=== PATIENT | male | born 1970 | race Hispanic/Latino ===

== ENCOUNTER 2017-10-07 15:42 | Emergency (ER) | payer BC ==
[2017-10-07 15:50] VITALS: TEMP 98.7
[2017-10-07] MEDS ORDERED: Lidocaine 2% w Epi 1:100,000 Inj IJ ONE ×2 (16:10→16:18)
--- NOTE | 2017-10-07 16:13 | ED PDOC ---
HPI: General Adult Time Seen by Provider: 10/07/17 16:11 Chief Complaint (Nursing): Trauma Chief Complaint (Provider): head injury History Per: Patient (47 y/o male here for evaluation of head injury. States he slipped and fell today on wet floor. States he felt dizzy at time of injury but no LOC. Denies any use of anticoagulants. Denies any chest pain/etc.) Past Medical History Reviewed: Historical Data, Nursing Documentation, Vital Signs Vital Signs: Last Vital Signs Temp 98.7 F 10/07/17 17:15 Pulse 110 H 10/07/17 19:42 Resp 18 10/07/17 17:50 BP 92/58 L 10/07/17 19:42 Pulse Ox 98 10/07/17 19:55 - Family History Family History: States: No Known Family Hx - Home Medications Home Medications: Ambulatory Orders Medication Instructions Recorded Cephalexin [Keflex] 500 mg PO QID #20 capsule 10/07/17 - Allergies Allergies/Adverse Reactions: Allergies Allergy/AdvReac Type Severity Reaction Status Date / Time No Known Allergies Allergy Verified 10/07/17 15:44 Review of Systems ROS Statement: Except As Marked, All Systems Reviewed And Found Negative Physical Exam - Reviewed Nursing Documentation Reviewed: Yes Vital Signs Reviewed: Yes - Physical Exam Appears: Positive for: Well, Non-toxic, No Acute Distress Head Exam: Positive for: NORMAL INSPECTION, NORMOCEPHALIC. Negative for: ATRAUMATIC (laceration #1 2.5 cm deep jagged above right eyebrow. Laceration # 2 five mm right eyelid.) Skin: Positive for: Normal Color, Warm, DRY Eye Exam: Positive for: EOMI, Normal appearance, PERRL ENT: Positive for: Normal ENT Inspection Neck: Positive for: Normal, Painless ROM Cardiovascular/Chest: Positive for: Regular Rate, Rhythm Respiratory: Positive for: CNT, Normal Breath Sounds Gastrointestinal/Abdominal: Positive for: Normal Exam, Bowel Sounds, Soft Back: Positive for: Normal Inspection Extremity: Positive for: Normal ROM Neurologic/Psych: Positive for: Alert, Oriented - ECG O2 Sat by Pulse Oximetry: 98 - Progress ED Course And Treament: PATIENT NOTED PERSISTENTLY TACHYCARDIC AT 109. REPEAT PULSE OX 98% ON ROOM AIR. STATES HE IS ON ADDERALL. HAS ALSO RECENTLY FINISHED LEVAQUIN 2 DAYS AGO FOR BRONCHITIS. STATES HE HAS APPOINTMENT WITH HIS [employer] ON TUESDAY AND DOES NOT WANT CXR /EKG/LABWORK EVALUATION. Disposition - Clinical Impression Clinical Impression: Facial laceration, Head injury - Patient ED Disposition Is Patient to be Admitted: No - Disposition Disposition: Routine/Home Disposition Time: 17:52 Condition: FAIR Prescriptions: Cephalexin [Keflex] 500 mg PO QID #20 capsule Instructions: Laceration (ED) Forms: [employer] ([place]) Procedure: Wound Repair - Time Performed Time Performed: 17:07 - Time Out Time Out: Site verified - Consent Obtained Consent obtained: Verbal - Performed by Performed by: Mid-level Provider - Indications Indication(s):: Laceration - Location Location:: Right, Face Shape:: Stellate Dimensions Length cm: 2.5cm Depth:: Epidermis - Anesthetic Technique Anesthetic Technique: Topical Local/Regional Anesthetic:: Lidocaine 2% w/epi - Debris Debris:: None - Irrigated Irrigated with ml of normal saline: 150ml - Complexity Complexity:: Intermediate (2 layer) - Wound repair method Sutures:: # (three 6-0 nylon sutures external; eight 6-0 prolene sutures external; one 5-0 vicryl suture subcutaneous.), Technique (interrupted) - Complications Complications: LACERATION#2 5MM TWO 6-0 PROLENE SUTURES INTERRUPTED - Patient tolerated procedure Patient Tolerated Procedure:: Well
[2017-10-07 18:05] VITALS: RESP 18
[2017-10-07 19:45] VITALS: BP 92/58; PULSE 110
[2017-10-07 19:55] VITALS: O2SAT 98
== END 2017-10-07 18:40 | disposition home or self-care (01) ==
LOC: H.ER 15:42
DX: S01.81XA Laceration without foreign body of other part of head, initial encounter (principal); W01.0XXA Fall on same level from slipping, tripping and stumbling without subsequent striking against object, initial encounter